=== PATIENT | female | born 1970 | race Hispanic/Latino ===

== ENCOUNTER → 2025-07-31 | Outpatient (CLI) | payer OTHER ==
[~2025-07-31] MED LIST: GADOTERATE MEGLUMINE 10 MMOL/20 ML VIAL IV ONE
--- NOTE | 2025-08-01 14:23 | HMCIMG ---
EXAMINATION: MRI OF THE ABDOMEN WITHOUT AND WITH CONTRAST. CLINICAL HISTORY: Primary biliary cirrhosis. COMPARISON: None. TECHNIQUE: Multiplanar, multisequence MR images of the abdomen are submitted. MRCP images were created on an independent workstation, and made available in electronic format. Post contrast images were obtained after administration of IV contrast. FINDINGS: The right lobe of the liver is enlarged in caliber and measures 20 cm. [place] left lobe of the liver. Intrahepatic bile ducts are normal in caliber. The common bile duct is normal in caliber throughout its course without evidence of choledocholithiasis. The gallbladder is surgically absent. The common hepatic duct measures 0.5 cm. The common bile duct measures 0.5 cm is normal in caliber The pancreas head , body, and tail appears normal in caliber and signal intensity. No peripancreatic fat plane stranding. The main pancreatic duct is normal in caliber. The spleen is normal in caliber and signal intensity. There is no focal abnormality appreciated within the spleen. There is no focal abnormality appreciated within the adrenal glands. The kidneys are normal in caliber and signal intensity with normal enhancement. There are colonic diverticula. The other included gastrointestinal tract is normal in caliber and signal intensity. Small umbilical hernia. There is no ascites. There is no lymphadenopathy. IMPRESSION: Enlarged right lobe and shrunken left lobe of the liver. No focal hepatic lesions. Status post cholecystectomy. No biliary duct dilatation. No choledocholithiasis. /[place]
== END | disposition home or self-care (01) ==
LOC: RAH 07:36
PROVIDERS: ATTEND Student in an Organized Health Care Education/Training Program
DX: K74.3 Primary biliary cirrhosis (principal); R16.0 Hepatomegaly, not elsewhere classified; K57.90 Diverticulosis of intestine, part unspecified, without perforation or abscess without bleeding; K44.9 Diaphragmatic hernia without obstruction or gangrene; Z90.49 Acquired absence of other specified parts of digestive tract
CPT/HCPCS: 74183; A9575 ×2